=== PATIENT | male | born 1985 | race African-American/Black ===

== ENCOUNTER 2023-05-04 15:52 | Emergency (ER) | payer MEDICAID, OTHER ==
[~2023-05-04] VITALS: Ht 188 cm; Wt 90.0 kg
[~2023-05-04 15:52] MED LIST: CITA10TA16 PO
[2023-05-04 15:54] VITALS: BP 152/84; PULSE 90; RESP 20; TEMP 98.3; O2SAT 99
== END 2023-05-04 18:13 | disposition left against medical advice (07) ==
LOC: ER 15:52
DX: Z53.21 Procedure and treatment not carried out due to patient leaving prior to being seen by health care provider (principal)
CPT/HCPCS: 93005; 99281

== ENCOUNTER 2023-06-21 20:30 | Emergency (ER) | payer MEDICAID, OTHER ==
[~2023-06-21] VITALS: Ht 190.5 cm; Wt 91.0 kg
[2023-06-21 20:35] VITALS: BP 127/89; PULSE 61; RESP 16; TEMP 97.4; O2SAT 98
[2023-06-21] MEDS ORDERED: ALBUTEROL (0.083%) 2.5MG/3ML NEB HHN SCH (21:00)
[2023-06-21] MEDS ORDERED: METHYLPREDNISOLONE SOD SUCC 125MG/2ML (ACT-O-VIAL) IV ONE (21:00)
[2023-06-21] MEDS ORDERED: DIPHENHYDRAMINE 50MG/ML VIAL IV ONE (21:00)
[2023-06-21] MEDS ORDERED: SODIUM CHLORIDE 0.9% 1,000 ML IV SCH (21:00)
[2023-06-21] MEDS ORDERED: EPINEPHRINE 1:1000 1 MG/ML AMP IM ONE (21:00)
[2023-06-21 21:43] LABS: BASOPHILS % 1.1 % (0.0-2.0); DIFFERENTIAL COMMENT 0; EOSINOPHILS % 5.7 % (0.0-5.0); HEMATOCRIT. 39.1 % (42.0-52.0); HEMOGLOBIN. 12.2 g/dL (14.0-18.0); LYMPHOCYTES % 27.6 % (20.0-50.0); MEAN CORPUSCULAR HEMOGLOBIN 22.2 pg (28.0-32.0); MEAN CORPUSCULAR HGB CONC 31.2 g/dL (31.0-37.0); MEAN CORPUSCULAR VOLUME 71.3 fL (80.0-94.0); MEAN PLATELET VOLUME 9.2 fl (7.4-10.4); MONOCYTES % 9.2 % (2.0-8.0); NEUTROPHILS % 56.4 % (40.0-76.0); PLATELET 201 x1000/uL (130-400); RED BLOOD CELL COUNT 5.48 mill/uL (4.7-6.1); WHITE BLOOD COUNT 6.6 x1000/uL (4.5-11.0)
[2023-06-21 22:10] LABS: ALANINE AMINOTRANSFERASE 10 IU/L (10-49); ALBUMIN 4.1 g/dL (3.2-4.8); ASPARTATE AMINOTRANSFERASE 15 IU/L (<34); BILIRUBIN TOTAL 0.5 mg/dL (0.1-1.0); CALCIUM 9.1 mg/dL (8.7-10.4); CARBON DIOXIDE 29 mEq/L (21-32); CHLORIDE 107 mEq/L (98-107); CREATININE 1.1 mg/dL (0.6-1.3); GLUCOSE 88 mg/dL (70-105); POTASSIUM 4.1 mEq/L (3.5-5.1); PROTEIN TOTAL 6.9 g/dL (6.0-8.3); SODIUM 139 mEq/L (136-145); UREA NITROGEN BLOOD 14 mg/dL (9-23)
[2023-06-21] MEDS ORDERED: EPINEPHRINE 1:1000 1 MG/ML AMP IM NR (23:45)
[2023-06-21] MEDS ORDERED: METHYLPREDNISOLONE SOD SUCC 125MG/2ML (ACT-O-VIAL) IV NR (23:45)
[2023-06-21] MEDS ORDERED: DIPHENHYDRAMINE 50MG/ML VIAL IV NR (23:45)
[2023-06-22] MEDS ORDERED: ALBUTEROL (0.083%) 2.5MG/3ML NEB HHN SCH
[2023-06-22] MEDS ORDERED: EPIN0.3P3 IM (01:41)
== END 2023-06-22 03:29 | disposition home or self-care (01) ==
LOC: ER 20:30
DX: T78.40XA Allergy, unspecified, initial encounter (principal); J02.9 Acute pharyngitis, unspecified; X58.XXXA Exposure to other specified factors, initial encounter
CPT/HCPCS: 99284; 80053; 85025; 36415; 96372; J1200; J3490; J2930

== ENCOUNTER 2025-03-18 19:28 | Emergency (ER) | payer OTHER ==
[~2025-03-18] VITALS: Ht 190.5 cm; Wt 106.5 kg
[~2025-03-18 19:28] MED LIST changes: +EPIN0.3P3 IM
[2025-03-18 19:41] VITALS: O2SAT 98
[2025-03-18] MEDS ORDERED: ACET-2708 MT (21:47)
[2025-03-18] MEDS ORDERED: NAPR-1129 MT (21:47)
[2025-03-18 21:52] VITALS: BP 119/74; PULSE 70; RESP 14; TEMP 36.6; O2SAT 99
== END 2025-03-18 22:19 | disposition home or self-care (01) ==
LOC: ER 19:46
DX: S83.241A Other tear of medial meniscus, current injury, right knee, initial encounter (principal); F31.9 Bipolar disorder, unspecified; Z91.0120 Allergy to eggs, unspecified; X58.XXXA Exposure to other specified factors, initial encounter; Y93.83 Activity, rough housing and horseplay; Y92.89 Other specified places as the place of occurrence of the external cause; Y99.8 Other external cause status
CPT/HCPCS: 29505; 73562; 99283